=== PATIENT | male | born 1955 | race Caucasian/White ===

== ENCOUNTER 2016-08-26 11:00 | Emergency (ER) | payer OTHER ==
[~2016-08-26] VITALS: Ht 175.3 cm; Wt 67.8 kg
[~2016-08-26 11:00] MED LIST: COZAAR50 MG PO; EXCEDRIN BACK &1 TAB PO; PERCOCET 325 MG1 TA2 PO
--- NOTE | 2016-08-26 11:13 | ED ANKLE/FOOT INJURY COMPLAINT ---
History of Present Illness General Chief Complaint: Foot or Ankle Injury Stated Complaint: LT ANKLE PAIN Source: patient Exam Limitations: no limitations Vital Signs & Intake/Output Vital Signs & Intake/Output Vital Signs Date Time Temp Pulse Resp B/P B/P Pulse O2 O2 Flow FiO2 Mean Ox Delivery Rate 08/26 1211 97.5 80 18 122/80 98 Room Air Room Air 08/26 1107 97.8 80 18 125/81 100 Room Air Allergies Coded Allergies: MDX - Lisinopril (LISINOPRIL) (UNKNOWN 03/19/14) Reconcile Medications Acetaminophen/Aspirin, Buffe (Excedrin Back & Body 250 MG-250 MG) 1 TAB TAB 1 TAB PO PRN PAIN (Reported) Hydrocodone/Acetaminophen (Hydrocodon-Acetaminophen 5-325) 5 MG-325 MG TABLET 1-2 TAB PO Q4-6 PRN PRN pain Ibuprofen 800 MG TABLET 1 TAB PO TID gout Losartan Potassium (Cozaar) (Unknown Strength) TAB (Unknown Dose) PO DAILY BP (Reported) OXYCODONE HCL/ACETAMINOPHEN (Percocet 5-325 MG Tablet) 325 MG/5 MG TAB 1-2 TAB PO Q4-6 PRN PRN PAIN Triage Note: C/O LEFT ANKLE PAIN WITH SWELLING X 1 WEEK, DENIES INJURY OR FALL. ALSO C/O PAIN IN LEFT LATERAL KNEE. Triage Nurses Notes Reviewed? yes Occurred: just prior to arrival Duration: week(s): (1), constant, continues in ED Timing: recent history Severity: moderate, severe Pain/Injury Location: Left: Ankle. Method of Injury: unknown No Modifying Factors: none HPI: 60-year-old male comes into the emergency room with complaints of left ankle pain. Symptoms going on for past week. Patient denies any known injury. Sharp. Medial malleoli region. Denies any fever chills vomiting. History of previous gout long time ago. It did not occur in his ankle. Hurts with ambulation. Denies any other associated symptoms. (CHELSEA ZUNIGA) Past History Travel History Traveled to [place] past 21 day No Medical History Any Pertinent Medical History? see below for history Cardiovascular: hypertension Pneumonia Vaccine: 01/14/11 Surgical History Surgical History: non-contributory Psychosocial History Who do you live with Patient/Self Services at Home None What is your primary language Uzbek Tobacco Use: Current Daily Use Daily Tobacco Use Amount/Type: =< 4 Cigarettes daily ETOH Use: denies use Family History Hx Contributory? No (CHELSEA ZUNIGA) Review of Systems Review of Systems Constitutional: Reports: no symptoms. EENTM: Reports: no symptoms. Respiratory: Reports: no symptoms. Cardiovascular: Reports: no symptoms. GI: Reports: no symptoms. Genitourinary: Reports: no symptoms. Musculoskeletal: Reports: see HPI. Skin: Reports: see HPI. Neurological/Psychological: Reports: no symptoms. Hematologic/Endocrine: Reports: no symptoms. Immunologic/Allergic: Reports: no symptoms. All Other Systems: Reviewed and Negative (CHELSEA ZUNIGA) Physical Exam Physical Exam General Appearance: well developed/nourished Head: atraumatic Eyes: Bilateral: normal appearance. Ears, Nose, Throat: normal ENT inspection, hearing grossly normal Neck: normal inspection Cardiovascular/Respiratory: no respiratory distress Back: normal inspection Leg/Knee/Thigh Left: normal range of motion Ankle Left: mild erythema medial malleoli region, soft tissue tenderness, full range of motion of ankle, dorsalis pedis pulse 2+, capillary refill intact, Foot Left: normal inspection Neuro/Vascular: normal motor function, normal sensation Tendon: normal tendon function Psychiatric: awake, alert, oriented x 3 Skin: intact, normal color, warm/dry (CHELSEA ZUNIGA) Progress Differential Diagnosis: cellulitis, septic arthritis, gout, fracture, dislocation, sprain, contusion, compartmental syndrome Plan of Care: Orders Procedure Date/time Status XRY-ANKLE 3 OR MORE VIEWS L 08/27 1111 Active Diagnostic Imaging: Viewed by Me: Radiology Read. Discussed w/RAD: Radiology Read. Radiology Impression: SERVICE DATE: 08/26/16 EXAM TYPE: RAD - XRY-ANKLE 3 OR MORE VIEWS L EXAMINATION: XR ANKLE, LEFT CLINICAL INFORMATION: Left ankle swelling and pain. COMPARISON: None TECHNIQUE: AP, lateral, and mortise views of the left ankle. FINDINGS: Normal alignment with no fracture. Mild tibiotalar osteoarthritis. Cortical irregularity of the lateral talar dome may represent a remote, healed OCD or degenerative central osteophyte. Small chronic ossification at the tip of the medial malleolus. No radiopaque foreign body. IMPRESSION: Mild degenerative changes with no acute osseous abnormality. DICTATED BY: RAFAEL FERNANDEZ MD DATE/TIME DICTATED:08/26/161127 PSYCHOLOGIST RESEARCH ASSISTANT:LIZZ DATE/TIME TRANSCRIBED:08/26/161127 CONFIDENTIAL, DO NOT COPY WITHOUT APPROPRIATE AUTHORIZATION. Comments: 08/26/2016 1:03:49 PM Symptoms are likely consistent with acute gouty arthritis. Patient has some mild erythema over the medial malleoli or joint region. Patient is on hydrochlorothiazide which could potentially be related to gout flare. No evidence of septic joint. Afebrile. Nontoxic appearing. There is no evidence of acute fracture on x-ray. Patient was treated for acute gouty arthritis versus a ankle sprain. Patient was recommended to follow-up with his primary care doctor as well as possibly orthopedic if symptoms don't improve. Weightbearing as tolerated at this time. Discussed signs and symptoms of potential infection. Patient will return if any limb streaking or spreading of redness. No suspicion for septic joint at this time. (SCOTT CHAMPAGNE,CHELSEA) Departure Departure Disposition: HOME OR SELF CARE Condition: Stable Clinical Impression Primary Impression: Acute gouty arthritis Referrals: ADRI REYES (PCP/Family) Additional Instructions: Ice. Rest. Ibuprofen and Vicodin as prescribed. Follow-up with your primary care doctor. Return if any concerns worsening symptoms. An orthopedic doctor has been provided on the discharge instructions. Please go over all results of today's visit with your primary care doctor. Contact your primary care doctor to let them know you were here in the emergency room. There may be nonspecific findings which may not be related to your visit today here in the emergency room but may require further evaluation and chronic monitoring by your primary care doctor. If you had a laceration today the chance of foreign body always remains. You should follow-up with your primary care doctor for recheck in 3-5 days for a wound check. If you had an x-ray done there is a chance that a fracture could have been missed on initial read and you should follow-up with your primary care doctor for repeat x-rays if symptoms persist. If your blood pressure was elevated here in the emergency room please have rechecked by her primary care doctor within the next 48 hours by your primary care doctor. If you were prescribed a narcotic here in the emergency room or any type of controlled substances you're not allowed to drive while taking this medication or operate any type of heavy machinery. Narcotics can make you feel lightheaded dizziness nausea and can cause constipation. You may need to supervisor opening and picking a stool softener. Thank you for choosing [facility] emergency room. Please return to the emergency room immediately if you have any other concerns worsening of symptoms. Departure Forms: Customer Survey General Discharge Information Prescriptions: Current Visit Scripts Ibuprofen 1 TAB PO TID #30 TAB Hydrocodone/Acetaminophen (Hydrocodon-Acetaminophen 5-325) 1-2 TAB PO Q4-6 PRN PRN pain #10 TAB (CHELSEA ZUNIGA) PA/CENTRAL SUPPLY AIDE Co-Sign Statement Statement: ED Attending supervision documentation- [] I saw and evaluated the patient. I have also reviewed all the pertinent lab results and diagnostic results. I agree with the findings and the plan of care as documented in the PA's/CENTRAL SUPPLY AIDE's documentation. [X] I have reviewed the ED Record and agree with the PA's/CENTRAL SUPPLY AIDE's documentation. [] Additions or exceptions (if any) to the PAs/CENTRAL SUPPLY AIDE's note and plan are summarized below: [] (MAHAD SOLANO,NINI)
--- NOTE | 2016-08-26 11:42 | RADIOLOGY REPORT ---
EXAMINATION: XR ANKLE, LEFT CLINICAL INFORMATION: Left ankle swelling and pain. COMPARISON: None TECHNIQUE: AP, lateral, and mortise views of the left ankle. FINDINGS: Normal alignment with no fracture. Mild tibiotalar osteoarthritis. Cortical irregularity of the lateral talar dome may represent a remote, healed OCD or degenerative central osteophyte. Small chronic ossification at the tip of the medial malleolus. No radiopaque foreign body. IMPRESSION: Mild degenerative changes with no acute osseous abnormality.
[2016-08-26] MEDS ORDERED: HYDROCODON-ACE1 EAC2 PO (12:07)
[2016-08-26] MEDS ORDERED: IBUPROFEN800 M1 PO (12:07)
[2016-08-26 12:11] VITALS: BP 122/80
== END 2016-08-26 12:13 ==
LOC: ERH 11:00
DX: M10.9 Gout, unspecified (principal)
CPT/HCPCS: 73610-LT

== ENCOUNTER 2017-04-15 08:49 | Emergency (ER) | payer OTHER ==
[~2017-04-15 08:49] MED LIST changes: +AMLODIPINE BESY10 M1 PO; +BENZONATATE200 M1 PO; +FLUTICASONE PRO16 GM; +HYDROCHLOROTHIA25 M1 PO; +HYDROCODON-ACE1 EAC2 PO; +IBUPROFEN800 M1 PO
--- NOTE | 2017-04-15 08:57 | ED UPPER/LOWER EXTREMITY COMPL ---
History of Present Illness General Chief Complaint: Hand or Wrist Injury Stated Complaint: RIGHT 1ST DIGIT "NOT WORKING PROPERLY" Source: patient Exam Limitations: no limitations Vital Signs & Intake/Output Vital Signs & Intake/Output Vital Signs Date Time Temp Pulse Resp B/P B/P Pulse O2 O2 Flow FiO2 Mean Ox Delivery Rate 04/15 1015 98.0 74 18 136/56 99 Room Air 04/15 0910 99 Room Air 04/15 0855 97.3 73 16 153/75 96 Room Air Allergies Coded Allergies: lisinopril (COUGH 01/30/17) Reconcile Medications Amlodipine Besylate 10 MG TABLET 1 TAB PO DAILY HTN (Reported) Benzonatate (Unknown Strength) CAPSULE (Unknown Dose) PO TIDPRN UNKNOWN ( Reported) Fluticasone Propionate (Unknown Strength) SPRAY.SUSP (Unknown Dose) UNKNOWN ( Reported) Hydrochlorothiazide 25 MG TABLET 1 TAB PO DAILY HTN (Reported) Triage Note: PT TO ED C/O RT THUMB SWELLING. STATES IT HURTS WHEN HE PUTS PRESSURE TO IT. STATES IT HAS BEEN GOING ON X1 WEEK. WENT TO [facility] AND TOLD NOTHING WAS WRONG. PT STATES PAIN STILL PERSISTING AND ALEVE IS NOT WORKING. Triage Nurses Notes Reviewed? yes Onset: Gradual Duration: intermittent Timing: recent history Severity: moderate Severity Numbers: 5 HPI: Patient is a 61-year-old male who since emergency room with concerns of a one- week history of right thumb pain which he states that the mechanism occurred when he was using a drill lost control of the drill and had a gradual onset of localized right thumb pain states that movement of the thumb makes worse denies any wrist pain patient has not taken any medications for symptoms followed up with primary care doctor in the past week no x-rays were obtained Patient states that at rest he has no pain only with thumb movement Patient is right arm dominant Past History Travel History Traveled to [place] past 21 day No Medical History Any Pertinent Medical History? see below for history Cardiovascular: hypertension Surgical History Surgical History: non-contributory Psychosocial History Who do you live with Patient/Self Services at Home None What is your primary language Icelandic Family History Hx Contributory? No Review of Systems Review of Systems Constitutional: Reports: no symptoms. EENTM: Reports: no symptoms. Respiratory: Reports: no symptoms. Cardiovascular: Reports: no symptoms. Gastrointestinal/Abdominal: Reports: no symptoms. Genitourinary: Reports: no symptoms. Musculoskeletal: Reports: see HPI, joint pain. Skin: Reports: see HPI. Neurological/Psychological: Reports: no symptoms. Hematologic/Endocrine: Reports: no symptoms. Immunological: Reports: no symptoms. All Other Systems: Reviewed and Negative Physical Exam Physical Exam General Appearance: no apparent distress, alert, comfortable Head: atraumatic Eyes: Bilateral: normal appearance. Ears, Nose, Throat: hearing grossly normal Neck: normal inspection Cardiovascular/Respiratory: no respiratory distress Peripheral Pulses: 2+ radial (R) Back: normal inspection Neurologic/Tendon: normal sensation, normal motor functions, normal tendon functions, responds to pain, no evidence tendon injury, no pulse deficit Skin: intact, normal color, warm/dry Comments: Right wrist nontender full active range of motion, Right hand normal inspection no scaphoid tenderness noted mild point tenderness to first metacarpal phalangeal joint full active range of motion with mild pain with resisted range of motion of abduction Capillary refill less than 2 seconds Progress Differential Diagnosis: arterial insufficiency, contusion, dislocation, DVT, fracture, gout, septic arthritis, sprain, tendon injury Plan of Care: Orders Procedure Date/time Status XRY-HAND, 3 View RIGHT 04/15 899 Active Thumb spica splint was applied to right thumb no complications No scaphoid tenderness on exam patient was strongly advised to follow-up with disposition plan Discussed x-ray findings with patient strongly advised patient to follow up with orthopedic doctor Diagnostic Imaging: Viewed by Me: Radiology Read. Radiology Impression: no fracture Comments: PATIENT: GONZÁLEZ PERDUE PRESENT AGE: 61 PATIENT ACCOUNT NO: [id number] : 56 LOCATION: [facility] ORDERING PHYSICIAN: René CHAMPAGNE SERVICE DATE: 04/15/17 EXAM TYPE: RAD - XRY-HAND, RIGHT EXAMINATION: XR HAND, RIGHT CLINICAL INFORMATION: Right hand first digit pain and swelling. COMPARISON: Right hand x-rays of 03/05/2017, right wrist x-rays of 04/20/2014. TECHNIQUE: PA, lateral, and oblique views of the right hand. FINDINGS: There is no evidence of acute fracture or dislocation. Osseous mineralization is normal. No focal erosion is noted. Note is again made of a 2 mm radiopaque foreign body in the soft tissues of thenar eminence, on the PA view projecting in the first interdigital space. Minimal degenerative changes are noted at the first MCP joint. Mild degenerative changes at the second and third MCP joints. There are [id number] degenerative changes at the radiocarpal joint with subarticular sclerosis narrowing of the joint space and mild marginal osteophytic changes; the findings are not significantly changed since the previous x-ray of 04/20/2014. Old avulsion fracture of the ulnar styloid is redemonstrated. No soft tissue air. IMPRESSION: No acute osseous abnormality in the right hand. No evidence of soft tissue air. Minimal degenerative changes at the first MCP joint. Mild degenerative changes at other joints in the right hand and right wrist as described above. No significant interval change is noted compared to last study. Persistent 2 mm radiopaque foreign body in the thenar eminence soft tissue. DICTATED BY: Melanie Marques MD DATE/TIME DICTATED:04/15/17941 BOOK MENDER:LIZZ DATE/TIME TRANSCRIBED:04/15/17941 CONFIDENTIAL, DO NOT COPY WITHOUT APPROPRIATE AUTHORIZATION. <Electronically signed in Other Vendor System> SIGNED BY: Melanie Marques MD 04/15/17 1002 Departure Departure Disposition: HOME OR SELF CARE Condition: Stable Clinical Impression Primary Impression: Sprain of hand, thumb, right Secondary Impressions: Degenerative arthritis of thumb Referrals: Samra Calderon APRN (PCP/Family) Trev Iraheta MD Additional Instructions: As discussed begin icing the area directly 20 minutes every 2 hours, begin over- the-counter ibuprofen for pain and inflammation, if no better in one week follow -up with orthopedic Dr. Iraheta for further evaluation treatment begin using the splint that has been applied to the emergency room until YOU can move the thumb without pain if symptoms worsen return to emergency room If symptoms worsen or if he develop any new concerning symptom return to emergency room Departure Forms: Customer Survey General Discharge Information Procedures Splinting Location: RIGHT THUMB Manual Alignment Performed: No Hand-Made Type: orthoglass Splint: thumb spica Splint Applied By: splint applied by me Pre-Proc Neuro Vasc Exam: normal Post-Proc Neuro Vasc Exam: normal
--- NOTE | 2017-04-15 10:02 | RADIOLOGY REPORT ---
EXAMINATION: XR HAND, RIGHT CLINICAL INFORMATION: Right hand first digit pain and swelling. COMPARISON: Right hand x-rays of 03/05/2017, right wrist x-rays of 04/20/2014. TECHNIQUE: PA, lateral, and oblique views of the right hand. FINDINGS: There is no evidence of acute fracture or dislocation. Osseous mineralization is normal. No focal erosion is noted. Note is again made of a 2 mm radiopaque foreign body in the soft tissues of thenar eminence, on the PA view projecting in the first interdigital space. Minimal degenerative changes are noted at the first MCP joint. Mild degenerative changes at the second and third MCP joints. There are [id number] degenerative changes at the radiocarpal joint with subarticular sclerosis narrowing of the joint space and mild marginal osteophytic changes; the findings are not significantly changed since the previous x-ray of 04/20/2014. Old avulsion fracture of the ulnar styloid is redemonstrated. No soft tissue air. IMPRESSION: No acute osseous abnormality in the right hand. No evidence of soft tissue air. Minimal degenerative changes at the first MCP joint. Mild degenerative changes at other joints in the right hand and right wrist as described above. No significant interval change is noted compared to last study. Persistent 2 mm radiopaque foreign body in the thenar eminence soft tissue.
[2017-04-15 10:15] VITALS: BP 136/56
== END 2017-04-15 10:16 ==
LOC: ERH 08:49
DX: S63.601A Unspecified sprain of right thumb, initial encounter (principal); M15.2 Bouchard's nodes (with arthropathy); X58.XXXA Exposure to other specified factors, initial encounter; Y92.9 Unspecified place or not applicable; Y93.9 Activity, unspecified
CPT/HCPCS: 73130-RT

== ENCOUNTER 2017-11-08 14:46 | Emergency (ER) | payer OTHER ==
[~2017-11-08] VITALS: Ht 177.8 cm; Wt 62.5 kg
[2017-11-08] MEDS ORDERED: OXYBUTYNIN CHLO15 M1 PO (16:54)
[2017-11-08 17:04] LABS: ABSOLUTE BASOPHIL COUNT 0.1 /CUMM (0.0-0.2); ABSOLUTE EOSINOPHIL COUNT 0.3 /CUMM (0.0-0.7); ABSOLUTE GRANULOCYTE CT 8.9 /CUMM (1.4-6.5); ABSOLUTE LYMPH COUNT 2.1 /CUMM (1.2-3.4); ABSOLUTE MONOCYTE COUNT 1.1 /CUMM (0.10-0.60); BASOPHIL % 0.6 % (0.0-2.0); EOSINOPHIL % 2.1 % (0-5); GRANULOCYTE % 71.3 % (42.2-75.2); HEMATOCRIT 41.6 % (42-52); MEAN CORPUSCULAR HGB 31.2 PG (27.0-31.0); MEAN CORPUSCULAR HGB CONC 32.6 G/DL (33.0-37.0); MEAN CORPUSCULAR VOLUME 95.8 FL (80.0-94.0); MEAN PLATELET VOLUME 7.7 FL (7.4-10.4); PLATELET COUNT 305 /CUMM (130-400); RBC DISTRIBUTION WIDTH 15.2 % (11.5-14.5); RED BLOOD CELL CT 4.35 /CUMM (4.70-6.10); WHITE BLOOD CELL COUNT 12.4 /CUMM (4.8-10.8)
--- NOTE | 2017-11-08 17:15 | ED SKIN/ALLERGY COMPLAINT ---
History of Present Illness General Chief Complaint: Skin Rash/ Abcess Stated Complaint: SENT BY URGENT CARE FOR PERIRECTAL ABCESS Source: patient Exam Limitations: no limitations Vital Signs & Intake/Output Vital Signs & Intake/Output Vital Signs Date Time Temp Pulse Resp B/P B/P Pulse O2 O2 Flow FiO2 Mean Ox Delivery Rate 11/08 2034 96.0 80 14 168/95 98 Room Air 11/08 1457 95.1 84 20 157/97 98 Room Air Allergies Coded Allergies: lisinopril (COUGH 01/30/17) Reconcile Medications Amlodipine Besylate 10 MG TABLET 1 TAB PO DAILY HTN (Reported) Amoxicillin/Potassium Clav (Augmentin 875-125 Tablet) 875 MG-125 MG TABLET 1 TAB PO BID abscess Hydrochlorothiazide 25 MG TABLET 1 TAB PO DAILY HTN (Reported) Oxybutynin Chloride (Oxybutynin Chloride ER) 15 MG TAB.ER.24 1 TAB PO QPM BLADDER (Reported) Triage Note: SENT BY [facility] FOR EVALUATION OF DOMINIQUE-RECTAL ABCESS. C/O PAIN X 2 DAYS. Triage Nurses Notes Reviewed? yes HPI: 62-year-old male presents emergency department complaining of an abscess on his buttock. Patient states he noticed it a few days ago. It has become significantly painful over the past few days. He tried warm compresses and hot showers with no relief. He was seen at urgent care who sent him in for further evaluation. He has had a history of abscesses on his buttock but never in this location. He denies any fevers or chills. No painful defecation. No blood in stool. (Oneal Meza PA-C) Past History Travel History Traveled to [place] past 21 day No Medical History Any Pertinent Medical History? none Neurological: NONE EENT: NONE Cardiovascular: hypertension Respiratory: NONE Gastrointestinal: NONE Hepatic: NONE Renal: NONE Musculoskeletal: NONE Surgical History Surgical History: non-contributory Psychosocial History Who do you live with Patient/Self Services at Home None What is your primary language Luxembourgish Tobacco Use: Current Daily Use Daily Tobacco Use Amount/Type: => 5 Cigarettes daily ETOH Use: denies use Family History Hx Contributory? No (Oneal Meza PA-C) Review of Systems Review of Systems Constitutional: Reports: no symptoms. EENTM: Reports: no symptoms. Respiratory: Reports: no symptoms. Cardiovascular: Reports: no symptoms. GI: Reports: no symptoms. Genitourinary: Reports: no symptoms. Musculoskeletal: Reports: no symptoms. Skin: Reports: see HPI. All Other Systems: Reviewed and Negative (Derrick STINSON,Oneal) Physical Exam Physical Exam General Appearance: well developed/nourished, no apparent distress Head: atraumatic Eyes: Bilateral: PERRL, EOMI. Ears, Nose, Throat: normal pharynx, normal ENT inspection, hearing grossly normal Neck: normal inspection, supple Respiratory: normal breath sounds Cardiovascular: regular rate/rhythm Gastrointestinal: soft, non-tender Rectal: left sided rectal tenderness with palpable mass. Slightly indurated and TTP, mild surrounding erythema. Back: normal inspection Extremities: normal inspection, normal range of motion, no edema Neurologic/Psych: awake, alert, oriented x 3, normal mood/affect Skin: intact, normal color, warm/dry Lymphatic: no anterior cervical rimma (Oneal Meza PA-C) Progress Differential Diagnosis: abscess/cellulitis, perirectal abscess, fistula, hemorrhoid Plan of Care: Orders Procedure Date/time Status TRUNK AREA CULTURE 11/09 2023 Active LACTIC ACID 11/08 1517 Complete COMPREHENSIVE METABOLIC PANEL 11/08 151 Complete CBC WITHOUT DIFFERENTIAL 11/08 151 Complete Current Medications Sig/David Start time Last Medication Dose Stop Time Status Admin Amoxicillin/ 875 MG Q12 11/08 2100 UNVr Clavulanate Potassium (Augmentin) Laboratory Tests 11/08/17 1818: Lactic Acid Cancelled 11/08/17 1650: Anion Gap 8, Estimated GFR > 60, BUN/Creatinine Ratio 13.8, Glucose 87, Lactic Acid 0.7, Calcium 9.3, Total Bilirubin 0.4, AST 18, ALT 22, Alkaline Phosphatase 67, Total Protein 6.9, Albumin 4.1, Globulin 2.8, Albumin/Globulin Ratio 1.5, CBC w Diff NO MAN DIFF REQ, RBC 4.35 L, MCV 95.8 H, MCH 31.2 H, MCHC 32.6 L, RDW 15.2 H, MPV 7.7, Gran % 71.3, Lymphocytes % 17.2 L, Monocytes % 8.8, Eosinophils % 2.1, Basophils % 0.6, Absolute Granulocytes 8.9 H, Absolute Lymphocytes 2.1, Absolute Monocytes 1.1 H, Absolute Eosinophils 0.3, Absolute Basophils 0.1 Microbiology 11/09 2023 TRUNK: Culture & Sensitivity - RECD 11/09 2023 TRUNK: Anaerobic Culture - RECD 11/09 2023 TRUNK: Gram Stain - RECD 11/08 2020 BODY FLUID: Body Fluid Culture - CAN Cancelled: [employer] SYSTEM[employer] DEVELOPER 11/08 2020 BODY FLUID: Gram Stain - CAN Cancelled: [employer] DEVELOPER Diagnostic Imaging: Viewed by Me: CT Scan. Discussed w/RAD: CT Scan. Radiology Impression: PATIENT: GONZÁLEZ PERDUE PRESENT AGE: 62 PATIENT ACCOUNT NO: [id number] : 56 LOCATION: [facility] ORDERING PHYSICIAN: Enrique CHAMPAGNE SERVICE DATE: 11/08/17 EXAM TYPE: CAT - CT PELVIS W IV CONTRAST EXAMINATION: CT PELVIS WITH IV CONTRAST CLINICAL INFORMATION: perianal/perirectal abscess. Question fistula. COMPARISON: None TECHNIQUE: Helical scanning was performed with submillimeter collimation through the pelvis with 95 mL of Optiray 320 intravenous contrast. Sagittal and coronal multiplanar 2-D reconstructions were obtained. DLP: 191 mGy-cm FINDINGS: PELVIS: There is mild calcific atherosclerotic disease involving the inferior aorta and branches. Bladder is normal in appearance. No significantly dilated loops of small or large bowel. Dense stool noted within the distal sigmoid. Within the subcutaneous tissues of the left gluteal fold there is a hypodense rim enhancing collection. The hypodense component measures 1.9 (AP) x 0.9 (transverse) cm x 2.6 (CC) (image 51, series 2). There is marked induration of the adjacent soft tissues. The anus appears symmetric. There is no subcutaneous gas is tract between the anus and the collection within the subcutaneous tissues of the left gluteal region. The rectum is grossly unremarkable. No free fluid within the pelvis. Mild multilevel degenerative changes of the lower lumbar spine. OSSEOUS STRUCTURES: No acute findings. IMPRESSION: Small presumed abscess within the subcutaneous tissues of the left inguinal region without direct evidence to support the presence of a fistula. However, if there are persistent symptoms and a high degree of clinical suspicion a fluoroscopic study may add additional information and confirm the presence of a fistula. DICTATED BY: Judy Merritt MD DATE/TIME DICTATED:11/08/171833 PLASTER MODEL AND MOLD MAKER:LIZZ DATE/TIME TRANSCRIBED:08/12/18 / 1834 CONFIDENTIAL, DO NOT COPY WITHOUT APPROPRIATE AUTHORIZATION. <Electronically signed in Other Vendor System> SIGNED BY: Judy Merritt MD 11/08/17 6318 Comments: 62-year-old male presents with an abscess to the left of his anus. No evidence of fistula on CT. Purulent return with 18-gauge needle on needle aspiration. A small incision was made in the center of the abscess with moderate purulent return. Minimal blood loss. Patient tolerated procedure well. No packing was placed. There is no significant surrounding cellulitis, but will start patient on Augmentin to cover for infection. Patient has had a history of these in the past that have spontaneously resolved with warm compress. He will continue warm compress at home and follow-up with his primary care doctor/surgery in 1-2 days. Return immediately to the emergency department if he develops any new or worsening symptoms. He is in agreement with plan of care. (Oneal Meza PA-C) Departure Departure Time of Disposition: 2000 Disposition: HOME OR SELF CARE Condition: Stable Clinical Impression Primary Impression: Dominique-rectal abscess Referrals: Samra Calderon APRN (PCP/Family) Darren SOLANO,Roberth N. Additional Instructions: Take antibiotics as prescribed. Apply warm compress to area multiple times a day. Allow area to drain. Follow-up with your primary care doctor within 48 hours for reevaluation. You can also follow up with general surgery. Return to the emergency department immediately with any new or worsening symptoms including fever, chills, nausea or vomiting. Departure Forms: Customer Survey General Discharge Information Prescriptions: Current Visit Scripts Amoxicillin/Potassium Clav (Augmentin 875-125 Tablet) 1 TAB PO BID #20 TAB (Oneal Meza PA-C) PA/BANQUET PREP COOK Co-Sign Statement Statement: ED Attending supervision documentation- [] I saw and evaluated the patient. I have also reviewed all the pertinent lab results and diagnostic results. I agree with the findings and the plan of care as documented in the PA's/BANQUET PREP COOK's documentation. [X] I have reviewed the ED Record and agree with the PA's/BANQUET PREP COOK's documentation. [] Additions or exceptions (if any) to the PAs/BANQUET PREP COOK's note and plan are summarized below: [] (Leilani SOLANO,Jamar Grimm) Procedures Incision and Drainage Site: Left perirectal Blade Size: 11 I & D Procedure: Yes: betadine prep, sterile drapes applied, sterile dressing applied. Progress: Abscess localized by palpation. There is no evidence of communication with rectum on CT. Sterile technique used. Area anesthetized with 1% lidocaine. 18 -gauge needle with purulent return. A small incision was made with moderate purulent return. Probed and deloculated. Area was irrigated. Minimal blood loss. Wound culture obtained. Patient tolerated procedure well. Sterile dressing applied. (Derrick STINSON,Oneal)
--- NOTE | 2017-11-08 18:50 | CT SCAN REPORT ---
EXAMINATION: CT PELVIS WITH IV CONTRAST CLINICAL INFORMATION: perianal/perirectal abscess. Question fistula. COMPARISON: None TECHNIQUE: Helical scanning was performed with submillimeter collimation through the pelvis with 95 mL of Optiray 320 intravenous contrast. Sagittal and coronal multiplanar 2-D reconstructions were obtained. DLP: 191 mGy-cm FINDINGS: PELVIS: There is mild calcific atherosclerotic disease involving the inferior aorta and branches. Bladder is normal in appearance. No significantly dilated loops of small or large bowel. Dense stool noted within the distal sigmoid. Within the subcutaneous tissues of the left gluteal fold there is a hypodense rim enhancing collection. The hypodense component measures 1.9 (AP) x 0.9 (transverse) cm x 2.6 (CC) (image 51, series 2). There is marked induration of the adjacent soft tissues. The anus appears symmetric. There is no subcutaneous gas is tract between the anus and the collection within the subcutaneous tissues of the left gluteal region. The rectum is grossly unremarkable. No free fluid within the pelvis. Mild multilevel degenerative changes of the lower lumbar spine. OSSEOUS STRUCTURES: No acute findings. IMPRESSION: Small presumed abscess within the subcutaneous tissues of the left inguinal region without direct evidence to support the presence of a fistula. However, if there are persistent symptoms and a high degree of clinical suspicion a fluoroscopic study may add additional information and confirm the presence of a fistula.
[2017-11-08] MEDS ORDERED: AUGMENTIN 875-1 EACH PO (20:03)
[2017-11-08 20:35] VITALS: BP 168/95
== END 2017-11-08 20:36 ==
LOC: ERH 14:46
PROVIDERS: Physician Assistant Medical
DX: K61.1 Rectal abscess (principal)
CPT/HCPCS: 87070; 87075; 87205; J2001

== ENCOUNTER → 2017-12-14 | Day surgery (SDC) | payer OTHER ==
[~2017-12-14] MED LIST changes: +AUGMENTIN 875-1 EACH PO; +OXYBUTYNIN CHLO15 M1 PO; +PERCOCET 5-3251 EACH PO
--- NOTE | 2017-12-14 10:36 | Operative Report ---
Operative/Inv Procedure Report Surgery Date: 12/14/17 Name of Procedure: Robotic assisted laparoscopic bilateral inguinal hernia repair Pre-Operative Diagnosis: Bilateral inguinal hernia Post-Operative Diagnosis: Same Estimated Blood Loss: scant Surgeon/Inspector Purchased Parts: Levi SOLANO,Mayank Figueroa/Steph CHAMPAGNE Anesthesia: general endotracheal tube Implants: Parietex pro electronic warfare technical Operative/Procedure Note Note: After consent patient brought to the operating room laid supine. General anesthesia was obtained and his abdomen was prepped and draped. Skin was observed local anesthesia at Harris's point and a transverse incision made sharply. Access the peritoneum was gained percutaneously using an 8 mm optical trocar. Pneumoperitoneum was achieved. 2 more 8 mm ports were placed under direct vision in the transverse plane. The patient is placed in Trendelenburg, robot docked, targeted and instruments placed under direct vision. I then broke scrub and went to the console. There was a small left-sided indirect defect. I then developed a preperitoneal flap by taking down the peritoneum just superior to the defect. We then developed the preperitoneal plane with scissor cautery. Medially we dissected down to the pubic tubercle and freed up to Marito's ligament. There is a moderate to large sized direct hernia that was not evident appearing by the intraperitoneal visual inspection. Tissues were dissected inferiorly to except a piece of preperitoneal mesh. Then turned attention to the right side. The indirect space was relatively intact. However given the findings of a direct hernia on the left side, I proceeded to take down the hernia flap to better evaluate the direct space. Indeed there was a small to moderate sized direct hernia. Once I was happy with the dissection, two 10 x 15 cm pieces of parietex pro electronic warfare technical was placed in the cavity. Was placed over the defects and unraveled and self adhered to the fascial tissues on both sides. Once I was happy with the placement of mesh the peritoneal flaps was closed with a running absorbable 2-0V lock suture. Sutures then removed and passed off the field. The ports were delivered and passed off the field. Skin incisions closed with 4-0 Vicryl. Steri-Strips and sterile dressing are applied. Sponge and needle counts are correct. Findings: Left pantaloon, right direct CC: Samra Calderon APRN
== END ==
LOC: STS 00:56
DX: K40.20 Bilateral inguinal hernia, without obstruction or gangrene, not specified as recurrent (principal); I10 Essential (primary) hypertension; F17.210 Nicotine dependence, cigarettes, uncomplicated
CPT/HCPCS: 49650; 64488; S2900; C1781; J0690; J2250; J3490